=== PATIENT | female | born 1950 | race African-American/Black ===

== ENCOUNTER 2020-11-11 14:43 | Emergency (ER) | payer OTHER ==
[2020-11-11 15:02] VITALS: BP 157/89; PULSE 76; BMI 22.1
[2020-11-11] MEDS ORDERED: ACETAMINOPHEN 500 MG TABLET (FP) PO ONE (16:08)
[2020-11-11] MEDS ORDERED: ACETAMINOPHEN 500 MG TABLET (FP) ONE (16:18)
[2020-11-11] MEDS ORDERED: morphine CARPU-JECT 2 MG/1 ML DISP.SYRIN IM ONE (16:32)
[2020-11-11] MEDS ORDERED: KETOROLAC TROMETHAMINE 30 MG/1 ML VIAL IVPUSH ONE (16:32)
[2020-11-11] MEDS ORDERED: KETOROLAC TROMETHAMINE 30 MG/1 ML VIAL IM ONE (17:31)
[2020-11-11] MEDS ORDERED: KETOROLAC TROMETHAMINE 30 MG/1 ML VIAL ONE (17:37)
[2020-11-11] MEDS ORDERED: morphine SULFATE 4 MG/ML VIAL ONE (17:37)
== END 2020-11-11 17:58 | disposition home or self-care (01) ==
LOC: JER 14:43
PROC: 3E0333Z Introduction of Anti-inflammatory into Peripheral Vein, Percutaneous Approach (ICD-10-PCS; principal; 2020-11-11)
PROC: 3E0233Z Introduction of Anti-inflammatory into Muscle, Percutaneous Approach (ICD-10-PCS; 2020-11-11)
PROC: 3E023NZ Introduction of Analgesics, Hypnotics, Sedatives into Muscle, Percutaneous Approach (ICD-10-PCS; 2020-11-11)
DX: M15.9 Polyosteoarthritis, unspecified (principal)
CPT/HCPCS: 99284-25

== ENCOUNTER 2023-06-27 10:34 | Inpatient (IN) | payer OTHER ==
[2023-06-27 13:25] LABS: BASO % 0.4 % (0-2.0); EOS % 5.2 % (0-4.5); HEMATOCRIT 37.7 % (32.4-45.2); HEMOGLOBIN 12.9 GM/dL (10.7-15.3); LYMPH % 31.6 % (8-40); MCH 29.1 pg (25.7-33.7); MCHC 34.2 g/dl (32.0-36.0); MEAN CELL VOLUME 84.9 fl (80-96); MEAN PLT VOLUME 8.8 fl (7.5-11.1); MONO % 10.7 % (3.8-10.2); NEUT % 52.1 % (42.8-82.8); PLATELET COUNT 182 10^3/uL (134-434); RBC 4.45 M/mm3 (3.60-5.2); RDW 16.7 % (11.6-15.6); WHITE BLOOD COUNT 4.4 K/mm3 (4.0-10.0)
[2023-06-27 13:36] LABS: INR 1.17 (0.83-1.09); PROTHROMBIN TIME (PATIENT) 13.5 SEC (9.7-13.0)
[2023-06-27 13:39] LABS: ACTIVATED PTT 29.8 SECONDS (25.2-36.5)
[2023-06-27 13:46] LABS: POTASSIUM 3.8 mmol/L (3.5-5.1)
[2023-06-27 13:48] LABS: CALCIUM 9.4 mg/dL (8.5-10.1)
[2023-06-27 13:49] LABS: BLOOD UREA NITROGEN 20.2 mg/dL (7-18)
[2023-06-27 13:52] LABS: CREATININE 0.9 mg/dL (0.55-1.3)
[2023-06-27 13:53] LABS: BILIRUBIN,TOTAL 0.4 mg/dL (0.2-1); TOT PROT 8.4 g/dl (6.4-8.2)
[2023-06-27] MEDS ORDERED: ESCITALOPRAM OXALATE 10 MG TABLET ONE ×2 (16:12→17:58)
[2023-06-27] MEDS ORDERED: ACETAMINOPHEN INJECTION 100 ML IVPB ONE ×2 (16:12→17:59)
[2023-06-27] MEDS ORDERED: GABAPENTIN 300 MG CAPSULE ONE ×2 (16:12→17:59)
[2023-06-27] MEDS: ACETAMINOPHEN 1000 MG/100 ML BAG IVPB ONE (17:30)
[2023-06-27] MEDS: ESCITALOPRAM OXALATE 10 MG TABLET PO ONE (18:04)
[2023-06-27] MEDS: GABAPENTIN 300 MG CAPSULE PO ONE (18:04)
[2023-06-27 19:29] VITALS: RESP 18
[2023-06-27] MEDS ORDERED: DEXAMETHASONE SOD PHOSPHATE 4 MG/1 ML VIAL ONE (19:42)
[2023-06-27] MEDS: DEXAMETHASONE SOD PHOSPHATE 4 MG/1 ML VIAL IVPUSH SCH (19:46)
[2023-06-27] MEDS ORDERED: CARVEDILOL 6.25 MG TABLET (FP) PO SCH (22:00)
[2023-06-27] MEDS: ATORVASTATIN CA 80 MG TABLET (FP) PO SCH (23:12)
[2023-06-27] MEDS: CARVEDILOL 6.25 MG TABLET (FP) PO SCH (23:12)
[2023-06-27] MEDS: GABAPENTIN 300 MG CAPSULE PO SCH (23:12)
[2023-06-27] MEDS: ENOXAPARIN NA (PORCINE) 40 MG/0.4 ML DISP.SYRIN SQ SCH (23:12)
[2023-06-28 05:20] VITALS: BMI 20.4
[2023-06-28 08:05] LABS: HEMOGLOBIN 12.4 GM/dL (10.7-15.3); MCH 28.8 pg (25.7-33.7); MCHC 33.6 g/dl (32.0-36.0); MEAN CELL VOLUME 85.7 fl (80-96); MEAN PLT VOLUME 8.8 fl (7.5-11.1); PLATELET COUNT 181 10^3/uL (134-434); RBC 4.32 M/mm3 (3.60-5.2); RDW 16.7 % (11.6-15.6); WHITE BLOOD COUNT 4.7 K/mm3 (4.0-10.0)
[2023-06-28 08:42] LABS: POTASSIUM 4.2 mmol/L (3.5-5.1)
[2023-06-28 08:45] LABS: CALCIUM 9.2 mg/dL (8.5-10.1)
[2023-06-28 08:46] LABS: ALBUMIN 2.7 g/dl (3.4-5.0); MAGNESIUM 2.1 mg/dL (1.8-2.4)
[2023-06-28 08:47] LABS: BLOOD UREA NITROGEN 23.2 mg/dL (7-18)
[2023-06-28 08:49] LABS: PHOSPHOROUS 3.8 mg/dL (2.5-4.9)
[2023-06-28 08:50] LABS: TOT PROT 7.8 g/dl (6.4-8.2)
[2023-06-28 08:51] LABS: BILIRUBIN,TOTAL 0.3 mg/dL (0.2-1)
[2023-06-28] MEDS: ESCITALOPRAM OXALATE 10 MG TABLET PO SCH (09:20)
[2023-06-28] MEDS: LOSARTAN POTASSIUM 50 MG TABLET PO SCH (09:20)
[2023-06-29 10:06] LABS: HEMATOCRIT 34.4 % (32.4-45.2); HEMOGLOBIN 11.7 GM/dL (10.7-15.3); MCH 29.3 pg (25.7-33.7); MCHC 34.2 g/dl (32.0-36.0); MEAN CELL VOLUME 85.8 fl (80-96); PLATELET COUNT 170 10^3/uL (134-434); RBC 4.01 M/mm3 (3.60-5.2); RDW 17.1 % (11.6-15.6); WHITE BLOOD COUNT 4.5 K/mm3 (4.0-10.0)
[2023-06-29 10:44] LABS: POTASSIUM 4.1 mmol/L (3.5-5.1)
[2023-06-29 10:50] LABS: ALBUMIN 2.6 g/dl (3.4-5.0); CALCIUM 8.8 mg/dL (8.5-10.1); MAGNESIUM 1.7 mg/dL (1.8-2.4)
[2023-06-29 10:53] LABS: PHOSPHOROUS 3.4 mg/dL (2.5-4.9)
[2023-06-29 10:55] LABS: BILIRUBIN,TOTAL 0.3 mg/dL (0.2-1); TOT PROT 7.3 g/dl (6.4-8.2)
[2023-06-30] MEDS: PREGABALIN 75 MG CAPSULE PO SCH (09:02)
[2023-06-30 09:58] LABS: HEMATOCRIT 33.6 % (32.4-45.2); HEMOGLOBIN 11.4 GM/dL (10.7-15.3); MCH 29.2 pg (25.7-33.7); MCHC 33.9 g/dl (32.0-36.0); MEAN CELL VOLUME 86.2 fl (80-96); MEAN PLT VOLUME 9.3 fl (7.5-11.1); PLATELET COUNT 168 10^3/uL (134-434); RBC 3.89 M/mm3 (3.60-5.2); RDW 16.5 % (11.6-15.6); WHITE BLOOD COUNT 4.4 K/mm3 (4.0-10.0)
[2023-06-30] MEDS: predniSONE 20 MG TABLET (UD) PO ONE (15:00)
[2023-07-01 05:28] VITALS: TEMP 97.9
[2023-07-01 09:30] LABS: HEMOGLOBIN 11.6 GM/dL (10.7-15.3); MCH 29.2 pg (25.7-33.7); MCHC 34.1 g/dl (32.0-36.0); MEAN CELL VOLUME 85.8 fl (80-96); MEAN PLT VOLUME 9.2 fl (7.5-11.1); PLATELET COUNT 174 10^3/uL (134-434); RBC 3.97 M/mm3 (3.60-5.2); RDW 16.3 % (11.6-15.6); WHITE BLOOD COUNT 5.4 K/mm3 (4.0-10.0)
[2023-07-01 09:48] LABS: CHLORIDE 111 mmol/L (98-107); POTASSIUM 4.5 mmol/L (3.5-5.1); SODIUM 141 mmol/L (136-145)
[2023-07-01 10:01] LABS: GLUCOSE,RANDOM 130 mg/dL (74-106)
[2023-07-01 10:04] LABS: ALBUMIN 2.6 g/dl (3.4-5.0); ANION GAP 6 mmol/L (4-13); BLOOD UREA NITROGEN 21.9 mg/dL (7-18); CO2 24 mmol/L (21-32); MAGNESIUM 2.1 mg/dL (1.8-2.4)
[2023-07-01 10:07] LABS: CREATININE 0.8 mg/dL (0.55-1.3); PHOSPHOROUS 2.8 mg/dL (2.5-4.9); SGOT/AST 28 U/L (15-37); SGPT/ALT 22 U/L (13-61)
[2023-07-01 10:09] LABS: ALK PHOS 101 U/L (45-117); BILIRUBIN,TOTAL 0.3 mg/dL (0.2-1); TOT PROT 7.8 g/dl (6.4-8.2)
[2023-07-01 10:15] LABS: CALCIUM 9.3 mg/dL (8.5-10.1)
[2023-07-01 14:41] VITALS: BP 151/74; PULSE 48
== END 2023-07-01 14:43 | DRG 546 ==
LOC: JER 10:34 → JERBED 16:37 → OBSVTOIN 19:12 → J6S 20:05
PROVIDERS: ADMIT Internal Medicine; ATTEND Internal Medicine
DX: M05.7A Rheumatoid arthritis with rheumatoid factor of other specified site without organ or systems involvement (principal); I69.351 Hemiplegia and hemiparesis following cerebral infarction affecting right dominant side; R20.2 Paresthesia of skin; R53.1 Weakness; I10 Essential (primary) hypertension; E78.5 Hyperlipidemia, unspecified; M54.16 Radiculopathy, lumbar region; G62.9 Polyneuropathy, unspecified
CPT/HCPCS: 0241U-QW; 36415; 70450-TC; 72131-TC; 72148-TC; 73110-TC-LT-FY; 73110-TC-RT-FY; 73130-TC-LT-FY; 73130-TC-RT-FY; 73560-TC-LT-FY; 73560-TC-RT-FY; 80053; 82085; 82550; 83735; 83825; 83874; 84100; 84155; 84165; 84207; 84630; 85025; 85027; 85610; 85651; 85730; 86140; 86200; 86431; 86850; 86900; 86901; 93005; 93010; 93971-TC; 97116-GP; 97162-GP; 99285-25; G0378; J0131

== ENCOUNTER → 2023-07-14 | Emergency (ER) | payer OTHER ==
[2023-07-14 10:39] LABS: BASO % 0.4 % (0-2.0); EOS % 3.6 % (0-4.5); HEMATOCRIT 36.9 % (32.4-45.2); HEMOGLOBIN 12.6 GM/dL (10.7-15.3); LYMPH % 25.1 % (8-40); MCH 29.2 pg (25.7-33.7); MEAN CELL VOLUME 85.9 fl (80-96); MEAN PLT VOLUME 8.4 fl (7.5-11.1); MONO % 9.6 % (3.8-10.2); NEUT % 61.3 % (42.8-82.8); PLATELET COUNT 246 10^3/uL (134-434); RBC 4.29 M/mm3 (3.60-5.2); RDW 15.7 % (11.6-15.6); WHITE BLOOD COUNT 4.4 K/mm3 (4.0-10.0)
[2023-07-14 10:48] LABS: INR 1.18 (0.83-1.09); PROTHROMBIN TIME (PATIENT) 13.7 SEC (9.7-13.0)
[2023-07-14 10:51] LABS: ACTIVATED PTT 32.2 SECONDS (25.2-36.5)
[2023-07-14 11:04] LABS: POTASSIUM 4.5 mmol/L (3.5-5.1)
[2023-07-14 11:08] LABS: CALCIUM 9.3 mg/dL (8.5-10.1)
[2023-07-14 11:09] LABS: ALBUMIN 2.5 g/dl (3.4-5.0); BLOOD UREA NITROGEN 14.5 mg/dL (7-18)
[2023-07-14 11:13] LABS: BILIRUBIN,TOTAL 0.3 mg/dL (0.2-1); TOT PROT 7.6 g/dl (6.4-8.2)
[2023-07-14 11:21] VITALS: BMI 33.2
[2023-07-14 12:57] VITALS: BP 173/82; PULSE 56; RESP 18; TEMP 98.6
[2023-07-14 13:11] LABS: EPI CELLS 6 /uL (0-25.1); HYALINE CASTS 0 /uL (0-3.1); URINE APPEARANCE CLOUDY; URINE BACTERIA 2381 /uL (0-1359); URINE BILIRUBIN NEGATIVE (NEGATIVE); URINE COLOR YELLOW; URINE GLUCOSE (UA) NEGATIVE (NEGATIVE); URINE KETONE NEGATIVE (NEGATIVE); URINE LEUK ESTERASE 1+ (NEGATIVE); URINE NITRITE NEGATIVE (NEGATIVE); URINE PROTEIN NEGATIVE (NEGATIVE); URINE WBC 108 /uL (0-25.8)
[2023-07-14 15:24] LABS: URINE CRYSTALS 0-2 /hpf; URINE RBC 63.8 /uL (0-23.9); YEAST NONE SEEN (NEGATIVE)
== END | disposition short-term general hospital (02) ==
LOC: JER 09:55
DX: I63.9 Cerebral infarction, unspecified (principal); R47.01 Aphasia; R29.810 Facial weakness; R53.1 Weakness
CPT/HCPCS: 36415; 70450-TC; 70496-TC; 70498-TC; 80053; 80061; 81003; 82962; 83036; 84484; 85025; 85610; 85730; 86850; 86900; 86901; 93005; 93010; 99285-25